=== PATIENT | female | born 1960 | race Caucasian/White ===

== ENCOUNTER → 2016-06-13 | Outpatient (CLI) | payer BC ==
[~2016-06-13] MED LIST: ACIPHEX20 MG PO; ADVAIR HFA120 INHALA IH; ALBUTEROL SULF8.5 GM IH; ASPIR 8181 M1 PO; ASPIR-LOW81 MG PO; ASPIRIN325 MG PO; ASPIRIN81 M1 PO; CELEBREX200 MG PO; CELEXA20 MG PO; CLOTRIM ANTIFUN15 GM TP; CYANOCOBALAM1000 MCG PO; DUONEB 2.5-0.5 M3 ML AEROSOL; DUONEB 2.5-0.5 M3 ML IH; ERGOCALCIF50000 UNIT PO; LEVOFLOXACIN750 MG PO; LOPRESSOR25 MG PO; MEDROL DOSEPAK4 MG PO; MICROZIDE12.5 M1 PO; MONTELUKAST SOD10 MG PO; MUCINEX600 MG PO; MULTI VITAMIN1 EACH PO; PERCOCET 5/31 TABLET PO; PREDNISONE20 MG PO; PREDNISONE5 MG PO; PROAIR HFA8.5 GM IH; PROVENTIL,2.5 MG/0.5 AEROSOL; SINGULAIR10 MG PO
== END | disposition home or self-care (01) ==
DX: R26.2 Difficulty in walking, not elsewhere classified (principal); M16.11 Unilateral primary osteoarthritis, right hip; M25.551 Pain in right hip; M25.651 Stiffness of right hip, not elsewhere classified; M62.81 Muscle weakness (generalized)
CPT/HCPCS: 97110 GP; 97150 GO; 97161 GP; 97165 GO

== ENCOUNTER 2016-07-17 05:21 | Inpatient (IN) | payer BC ==
[~2016-07-17] VITALS: Ht 157.5 cm; Wt 119.9 kg
[~2016-07-17 05:21] MED LIST changes: +IRON325 MG PO; +NEXIUM20 MG PO
[2016-07-17 06:06] VITALS: BP 142/85
[2016-07-17 10:41] LABS: HEMATOCRIT 31.7 % (36.0-46.0); MCH 30.6 PG (29.0-34.0); MCHC 33.1 G/DL (30.0-36.0); MCV 92.4 FL (83-99); MEAN PLAT.VOLUME 8.8 uM^3 (9.5-12.4); PLATELET COUNT 319 K/uL (156-360); RBC DIS.WIDTH-CV 13.3 % (11.8-14.6); RBC DIS.WIDTH-SD 45.4 % (39-53); WHITE BLOOD COUNT 10.6 K/uL (4.1-10.2)
[2016-07-17 10:44] LABS: RED BLOOD COUNT 3.43 M/uL (3.80-5.20)
[2016-07-17 13:10] VITALS: BP 116/63
[2016-07-17 15:36] VITALS: BP 118/64
[2016-07-17 19:43] VITALS: BP 142/94
[2016-07-17 20:27] VITALS: BP 150/66
[2016-07-18] VITALS: BP 124/62
[2016-07-18 03:53] VITALS: BP 147/63
[2016-07-18 07:22] LABS: HEMATOCRIT 32.8 % (36.0-46.0); MCV 91.4 FL (83-99)
[2016-07-18 07:42] LABS: ANION GAP 9 MEQ/L (2-14); CHLORIDE 101 MEQ/L (99-109); GFR ESTIMATE (CALCULATED) > 59 mL/min/; GLUCOSE 103 mg/dL (70-99); POTASSIUM 4.1 MEQ/L (3.7-5.4); SAMPLE HEMOLYSIS CHECK 0; SAMPLE ICTERIC CHECK 0; SAMPLE LIPEMIA CHECK 0; SODIUM 136 MEQ/L (136-147); UREA NITROGEN (BUN) 15 mg/dL (9-23)
[2016-07-18 08:00] VITALS: BP 104/52
[2016-07-18 11:29] VITALS: BP 120/67
[2016-07-18 15:44] VITALS: BP 120/77
[2016-07-18 19:52] VITALS: BP 142/71
[2016-07-19] VITALS: BP 141/62
[2016-07-19 04:15] VITALS: BP 133/73
[2016-07-19 08:17] VITALS: BP 116/76
[2016-07-19 11:33] VITALS: BP 141/73
[2016-07-19 16:08] VITALS: BP 121/62
[2016-07-19 19:47] VITALS: BP 135/60
[2016-07-20 00:30] VITALS: BP 124/57
[2016-07-20 04:06] VITALS: BP 120/57
[2016-07-20 08:02] VITALS: BP 131/70
[2016-07-20] MEDS ORDERED: OXAYDO5 MG PO (09:15)
[2016-07-20] MEDS ORDERED: SENNA PLUS TAB1 EACH PO (09:15)
[2016-07-20] MEDS ORDERED: OXYCONTIN10 MG PO (09:15)
[2016-07-20] MEDS ORDERED: LOVENOX40 MG/0.4 SC (09:15)
[2016-07-20 12:13] VITALS: BP 135/86
== END 2016-07-20 12:49 | disposition home health service (06) | DRG 470 ==
LOC: 2SOUTH 05:21 → 3WEST 12:46 → 2SOUTH 15:08 → 3WEST 07-20 12:49
PROVIDERS: Orthopaedic Surgery
PROC: 0SR902A Replacement of Right Hip Joint with Metal on Polyethylene Synthetic Substitute, Uncemented, Open Approach (ICD-10-PCS; principal; 2016-07-17)
DX: M16.11 Unilateral primary osteoarthritis, right hip (principal); K21.9 Gastro-esophageal reflux disease without esophagitis; E66.9 Obesity, unspecified; Z68.42 Body mass index [BMI] 45.0-49.9, adult; G47.33 Obstructive sleep apnea (adult) (pediatric); J45.909 Unspecified asthma, uncomplicated
CPT/HCPCS: 73501; 80048; 85014; 85018; 85027; J0131; J0690; J1170; J1650; J2250; J7050